=== PATIENT | male | born 1995 | race Caucasian/White ===

== ENCOUNTER 2018-02-20 14:08 | Emergency (ER) | payer OTHER ==
--- NOTE | 2018-02-20 15:38 | CPEKG ---
Heart Rate: 75 RR Interval: 800 P-R Interval: 176 QRSD Interval: 100 QT Interval: 344 QTC Interval: 385 P Arboles: 56 QRS Arboles: 62 T Wave Arboles: 31 EKG Severity - NORMAL ECG - EKG Impression: SINUS RHYTHM EKG Impression: ST ELEV, PROBABLE NORMAL EARLY REPOL PATTERN Electronically Signed By: Tyree Sanchez 20-Feb-2018 16:11:16
[2018-02-20] MEDS ORDERED: NS 1,000 ML IV ONE (16:06)
[2018-02-20] MEDS ORDERED: KETOROLAC 30 MG/1 ML SDV IVP ONE (16:09)
--- NOTE | 2018-02-20 16:09 | EDPHY ---
H & P Stated Complaint: cp/l arm pain today/sent from pcp to r/o pericarditis ekg nsr Time Seen by Provider: 02/20/18 15:33 HPI/ROS: CHIEF COMPLAINT: Chest pain, weakness HISTORY OF PRESENT ILLNESS: Patient is a 22-year-old man with no significant past medical history who comes to the emergency department his mom complaining of mild chest pain radiating to his left shoulder. It is worsened by palpation and he states that is worsened when he lifts boards at work. He works at the [employer]. He states that his symptoms began yesterday. No recent fevers or illness although he did have the flu in November. No palpitations. No shortness of breath. No travel. No smoking. No hormones. No leg pain or swelling. He was seen at his primary Dr. Hightower was office today concern for pericarditis. He had an EKG that was normal other than slightly tachycardic and was referred to the ER. He does not have pleuritic pain. Mom does have a history of congenital heart disease as well as what sounds like vaso spasming. Patient also complains of some body aches including neck stiffness and a mild headache. He has not had a fever. REVIEW OF SYSTEMS: Constitutional: denies: chills, fever, recent illness, recent injury EENTM: denies: blurred vision, double vision, nose congestion Respiratory: denies: cough, shortness of breath Cardiac: See HPI Gastrointestinal/Abdominal: denies: abdominal pain, diarrhea, nausea, vomiting, blood streaked stools Genitourinary: denies: dysuria, frequency, hematuria, pain Musculoskeletal: denies: joint pain, muscle pain Skin: denies: lesions, rash, jaundice, bruising Neurological: denies: headache, numbness, paresthesia, tingling, dizziness, weakness Hematologic/Lymphatic: denies: blood clots, easy bleeding, easy bruising Immunologic/allergic: denies: HIV/AIDS, transplant EXAM: GENERAL: Well-appearing, well-nourished and in no acute distress. HEAD: Atraumatic, normocephalic. EYES: Pupils equal round and reactive to light, extraocular movements intact, sclera anicteric, conjunctiva are normal. ENT: TMs normal, nares patent, oropharynx clear without exudates. Moist mucous membranes. NECK: Normal range of motion, supple without lymphadenopathy or JVD. LUNGS: Breath sounds clear to auscultation bilaterally and equal. No wheezes rales or rhonchi. HEART: Pain reproducible with deep palpation. Regular rate and rhythm without murmurs, rubs or gallops laying or sitting. ABDOMEN: Soft, nontender, normoactive bowel sounds. No guarding, no rebound. No masses appreciated. BACK: No CVA tenderness, no spinal tenderness, step-offs or deformities EXTREMITIES: Normal range of motion, no pitting or edema. No clubbing or cyanosis. NEUROLOGICAL: Cranial nerves II through XII grossly intact. Normal speech, normal gait. 5/5 strength, normal movement in all extremities, normal sensation PSYCH: Normal mood, normal affect. SKIN: Warm, dry, normal turgor, no visible rashes or lesions. Source: Patient Exam Limitations: No limitations - Personal History Current Tetanus/Diphtheria Vaccine: Unsure - Medical/Surgical History Hx Asthma: No Hx Chronic Respiratory Disease: No Hx Diabetes: No Hx Cardiac Disease: No Hx Renal Disease: No Hx Cirrhosis: No Hx Alcoholism: No Hx HIV/AIDS: No Hx Splenectomy or Spleen Trauma: No Other PMH: denies - Family History Significant Family History: No pertinent family hx - Social History Smoking Status: Never smoked Alcohol Use: Sober Constitutional: Initial Vital Signs Temperature (C) 37.1 C 02/20/18 14:16 Heart Rate 86 02/20/18 14:16 Respiratory Rate 18 02/20/18 14:16 Blood Pressure 125/86 H 02/20/18 14:16 O2 Sat (%) 98 02/20/18 14:16 O2 Delivery Mode Room Air Allergies/Adverse Reactions: Penicillins Allergy (Verified 05/15/10 00:33) Home Medications: Medication Instructions Recorded NK [No Known Home Meds] 02/20/18 Medical Decision Making - Diagnostics EKG Interpretation: An EKG obtained and was read and documented in trace view. Please see trace view for full reading and report. , normal sinus rhythm, no acute ischemic changes, mild early repolarization unchanged from previous Imaging Results: Imaging Impressions Chest X-Ray 02/20/18 16:06 Impression: No acute abnormality. ED Course/Re-evaluation: 5:00 p.m. I spoke with Dr. Pacheco who read the echo and states that it looks normal, no signs of vegetations are pericardial effusion. He does not have signs of pericarditis on EKG. 5:15 p.m. we discussed the test results which are overall very reassuring. Patient states that he feels much better after medication. He no longer has a headache or neck stiffness. He did have a low-grade fever of 99. I offered to perform a lumbar puncture which he and his mom decline at this point. I warned them to return if his symptoms worsen or if he had a fever over 101. They agree to this. They agree to follow up in 24 hr either here or with Dr. Hightower. Differential Diagnosis: Partial list of the Differential diagnosis considered include but were not limited to; pericarditis, viral syndrome and although unlikely based on the history and physical exam, I also considered acute coronary disease, meningitis , sepsis, PE, pneumonia. I discussed these differential diagnoses and the plan with the patient as well as the usual and expected course. The patient understands that the diagnosis is provisional and that in medicine we are not always correct and that further workup is often warranted. Usual and customary warnings were given. All of the patient's questions were answered. The patient was instructed to return to the emergency department should the symptoms at all worsen or return, otherwise to followup with the physician as we discussed. - Data Points Laboratory Results: Laboratory Results 02/20/18 15:40 02/20/18 15:40 02/20/18 02/20/18 02/20/18 15:40 15:40 15:40 WBC 6.16 10^3/uL 10^3/uL (3.80-9.50) RBC 5.64 10^6/uL 10^6/uL (4.40-6.38) Hgb 16.2 g/dL g/dL (13.7-17.5) Hct 47.2 % % (40.0-51.0) MCV 83.7 fL fL (81.5-99.8) MCH 28.7 pg pg (27.9-34.1) MCHC 34.3 g/dL g/dL (32.4-36.7) RDW 12.9 % % (11.5-15.2) Plt Count 188 10^3/uL 10^3/uL (150-400) MPV 9.8 fL fL (8.7-11.7) Neut % (Auto) 69.7 % % (39.3-74.2) Lymph % (Auto) 18.3 % % (15.0-45.0) [place] % (Auto) 10.7 % % (4.5-13.0) Eos % (Auto) 0.5 % L % (0.6-7.6) Baso % (Auto) 0.5 % % (0.3-1.7) Nucleat RBC Rel Count 0.0 % % (0.0-0.2) Absolute Neuts (auto) 4.29 10^3/uL 10^3/uL (1.70-6.50) Absolute Lymphs (auto) 1.13 10^3/uL 10^3/uL (1.00-3.00) Absolute Monos (auto) 0.66 10^3/uL 10^3/uL (0.30-0.80) Absolute Eos (auto) 0.03 10^3/uL 10^3/uL (0.03-0.40) Absolute Basos (auto) 0.03 10^3/uL 10^3/uL (0.02-0.10) Absolute Nucleated RBC 0.00 10^3/uL 10^3/uL (0-0.01) Immature Gran % 0.3 % % (0.0-1.1) Immature Gran # 0.02 10^3/uL 10^3/uL (0.00-0.10) PT 15.6 SEC H SEC (12.0-15.0) INR 1.22 H (0.83-1.16) APTT 30.9 SEC SEC (23.0-38.0) D-Dimer < 0.27 ug/mLFEU ug/mLFEU (0.00-0.50) Sodium 141 mEq/L mEq/L (135-145) Potassium 3.8 mEq/L mEq/L (3.5-5.2) Chloride 102 mEq/L mEq/L (97-110) Carbon Dioxide 26 mEq/l mEq/l (22-31) Anion Gap 13 mEq/L mEq/L (8-16) BUN 13 mg/dL mg/dL (7-23) Creatinine 1.0 mg/dL mg/dL (0.7-1.3) Estimated GFR > 60 Glucose 75 mg/dL mg/dL (70-100) Calcium 9.2 mg/dL mg/dL (8.5-10.4) Troponin I < 0.012 ng/mL ng/mL (0.000-0.034) Medications Given: Discontinued Medications Sodium Chloride (Ns) 1,000 mls @ 0 mls/hr IV EDNOW ONE; Wide Open PRN Reason: Protocol Stop: 02/20/18 16:07 Last Admin: 02/20/18 16:31 Dose: 1,000 mls Ketorolac Tromethamine (Toradol) 30 mg IVP EDNOW ONE Stop: 02/20/18 16:10 Last Admin: 02/20/18 16:31 Dose: 30 mg Departure - Departure Disposition: Home, Routine, Self-Care Clinical Impression: Chest pain Qualifiers: Chest pain type: unspecified Qualified Code(s): R07.9 - Chest pain, unspecified Condition: Fair Instructions: Chest Pain (ED) Additional Instructions: Return to the emergency department if you have a fever over 101 or and a headache or if her symptoms worsen or if he have any altered mental status changes as we discussed. Referrals: WILLIAM HIGHTOWER [Primary Care Provider] - As per Instructions
[2018-02-20 16:11] LABS: PLATELET COUNT 188 10^3/uL (150-400)
[2018-02-20 16:24] LABS: INR 1.22 (0.83-1.16); PROTIME(PATIENT) 15.6 SEC (12.0-15.0)
[2018-02-20 17:35] VITALS: BP 121/77
--- NOTE | 2018-02-21 08:30 | ECHO ---
[email or web address] [address] [address] Main: [phone] Fax: [email or web address] Echocardiogram Name: PRASAD MAI MR#: [id number] Study Date: 02/20/2018 Study Time: 04:35 PM Date of : 1995 Age: 22 year(s) Height: 185.4 cm (73 in.) Weight: 79.83 kg (176 lb.) BSA: 2.04 m2 Gender: Male Examination: Echo Indication: Chest Pain Image Quality: Contrast: Requested by: Tyree Sanchez BP: / Heart Rate: Rhythm: Indication: Chest Pain Procedure [employer] Sales Representative: Yin Raines LASHONDA Reading Physician: Derick Pacheco MD Requesting Provider: Conclusions: Normal size left ventricle. Normal global systolic LV function. The ejection fraction is estimated to be 65-70 %. No regional wall motion abnormality. Trivial mitral valve regurgitation. Trivial tricuspid valve regurgitation. No pericardial effusion. Measurements: Chambers Valvular Assessment AV/MV Valvular Assessment TV/PV Normal Normal Normal Name Value Range Name Value Range Name Value Range Ao Yanely (MM): 3.4 cm (2.2 cm-3.7 AV Vmax: 1.10 m/s (1 m/s-1.7 TR Vmax: 2.44 mm/s ( - ) cm) m/s) TR PGmax: 24 mmHg ( - ) IVSd (2D): 0.8 cm (0.6 cm-1.1 AV maxP mmHg ( - ) syst. PAP: 29 mmHg ( - ) cm) AV meanP mmHg ( - ) LVDd (2D): 4.8 cm (4.2 cm-5.9 MV E Vmax: 0.82 m/s ( - ) cm) MV A Vmax: 0.35 m/s ( - ) LVDs (2D): 2.5 cm (2.1 cm-4 MV E/A: 2.34 ( - ) cm) LVPWd (2D): 0.6 cm (0.6 cm-1 cm) LVEF (MOD4): 68 % (>=55 %) EF Range: 65-70 % Continued Measurements: Chambers Valvular Assessment AV/MV Valvular Assessment TV/PV Name Value Name Value Name Value LADs: 3.7 cm MV E/E' Septal: 7.50 CVP (est.): 5 mmHg Patient: PRASAD MAI Study Date: 02/20/2018 Page 1 of 2 04:35 PM LADs Lon.7 cm MV E/E' Lateral: 4.40 LA Area: 15.8 cm2 Findings: Left Ventricle: Normal size left ventricle. No LV hypertrophy. Normal global systolic LV function. The ejection fraction is estimated to be 65-70 %. No regional wall motion abnormality. Normal diastolic LV function. Right Ventricle: Normal size right ventricle. Left Atrium: The left atrium is normal in size. Right Atrium: The right atrium is normal in size. Mitral Valve: The mitral valve is normal in appearance and function. Trivial mitral valve regurgitation. Aortic Valve: The aortic valve is normal in appearance and function. Tricuspid Valve: The tricuspid valve is normal in appearance and function. Trivial tricuspid valve regurgitation. Pulmonic Valve: The pulmonic valve is normal in appearance and function. Aorta: The aorta is normal. Pericardium: No pericardial effusion. (No Signature Object) Patient: PRASAD MAI Study Date: 02/20/2018 Page 2 of 2 04:35 PM [id number]
== END 2018-02-20 17:35 | disposition home or self-care (01) ==
DX: R07.9 Chest pain, unspecified (principal); E86.9 Volume depletion, unspecified
CPT/HCPCS: 96374; J1885

== ENCOUNTER → 2018-09-11 | Outpatient (CLI) | payer OTHER | LOC: FIMAGING 17:03 | PROVIDERS: ATTEND Family Medicine | DX: J34.2 Deviated nasal septum (principal) ==